=== PATIENT | female | born 2000 | race Two or more races ===

== ENCOUNTER 2024-01-20 12:50 | Emergency (ER) | payer SELFPAY ==
[~2024-01-20] VITALS: Ht 165.1 cm; Wt 69.0 kg
[2024-01-20 12:56] VITALS: O2SAT 99
[2024-01-20] MEDS: IBUPROFEN 600MG TABLET PO ONE (13:51)
[2024-01-20] MEDS: ACETAMINOPHEN 325MG TABLET PO ONE (13:52)
[2024-01-20 15:02] VITALS: BP 98/82; PULSE 82; RESP 16; TEMP 36.83628; O2SAT 99
== END 2024-01-20 15:04 | disposition home or self-care (01) ==
LOC: ER 12:50
DX: R51.9 Headache, unspecified (principal); R56.9 Unspecified convulsions
CPT/HCPCS: 99283